=== PATIENT | male | born 1985 | race Caucasian/White ===

== ENCOUNTER → 2017-12-27 | Emergency (ER) | payer OTHER ==
[~2017-12-27] VITALS: Ht 180.3 cm; Wt 91.6 kg
[~2017-12-27] MED LIST: ZANTAC300 MG PO; ZOFRAN8 MG PO
== END | disposition home or self-care (01) ==
LOC: ER 21:27
DX: K52.9 Noninfective gastroenteritis and colitis, unspecified (principal); R50.9 Fever, unspecified